=== PATIENT | male | born 1990 | race Caucasian/White ===

== ENCOUNTER → 2023-04-10 | Outpatient (REF) | payer BC ==
[~2023-04-10] MED LIST: IMMUNOGLOBULIN IV; No Historical Meds
[2023-04-10 18:35] LABS: HEMATOCRIT 45.1 % (42.0-52.0); MEAN CORPUSCULAR HEMOGLOBIN 30.8 pg (27.0-33.0); MEAN CORPUSCULAR HGB CONC 35.5 g/dl (32.0-36.5); MEAN CORPUSCULAR VOLUME 86.9 fl (80.0-96.0); PLATELET COUNT, AUTOMATED 210 10^3/uL (150-450); RED BLOOD COUNT 5.19 10^6/uL (4.30-6.10); WHITE BLOOD COUNT 4.3 10^3/uL (4.0-10.0)
[2023-04-10 18:36] LABS: C REACTIVE PROTEIN QUANTITATIV < 0.40 MG/DL (<1.0)
[2023-04-10 18:37] LABS: ALBUMIN 4.6 G/DL (3.2-5.2); ALKALINE PHOSPHATASE 91 U/L (46-116); ALT/SGPT 29 U/L (7.0-40); AST/SGOT 19 U/L (<34); BILIRUBIN,TOTAL 0.5 MG/DL (0.3-1.2); BLOOD UREA NITROGEN 14 MG/DL (9-23); CALCIUM LEVEL 9.6 MG/DL (8.5-10.1); CARBON DIOXIDE LEVEL 23 MMOL/L (20-31); CHLORIDE LEVEL 108 MMOL/L (98-107); CHOLESTEROL LEVEL 187 MG/DL (<200); CHOLESTEROL RISK RATIO 3.58 (<5); CREATININE FOR GFR 1.11 MG/DL (0.70-1.30); GLOMERULAR FILTRATION RATE > 60.0 (>60); GLUCOSE, FASTING 101 MG/DL (60-100); HDL CHOLESTEROL 52.2 MG/DL (>40); LDL CHOLESTEROL 121.4 MG/DL (<100); NON-HDL-C 134.8 MG/DL; POTASSIUM SERUM 4.3 MMOL/L (3.5-5.1); SODIUM LEVEL 138 MMOL/L (136-145); TOTAL PROTEIN 7.4 G/DL (5.7-8.2); TRIGLYCERIDES LEVEL 67 MG/DL (<150)
[2023-04-10 18:40] LABS: THYROID STIMULATING HORMONE 2.474 uIU/ML (0.55-4.78); TOTAL 25(OH) VITAMIN D 25.8 NG/ML (20.0-100.0)
[2023-04-10 18:41] LABS: FREE T4 1.33 NG/DL (0.89-1.76); VITAMIN B12 LEVEL 400 PG/ML (211-911)
[2023-04-10 18:47] LABS: HEMOGLOBIN A1c 5.1 % (4.0-6.0)
[2023-04-10 19:06] LABS: CREATININE, URINE 49.5 MG/DL
[2023-04-10 19:07] LABS: MALB URINE SIEMENS < 3.0 MG/L
[2023-04-12 14:08] LABS: INSULIN LEVEL 3.6 uIU/mL (2.6-24.9); LIPOPROTEIN (a) 127.7 nmol/L (<75.0)
== END ==
LOC: M SFHCPLAZ 11:01
PROVIDERS: ATTEND Internal Medicine Hematology
DX: Z00.00 Encounter for general adult medical examination without abnormal findings (principal)